=== PATIENT | female | born 1980 | race Caucasian/White ===

== ENCOUNTER 2016-10-19 12:42 | Emergency (ER) | payer SELFPAY | END 2016-10-19 13:10 | disposition left against medical advice (07) | LOC: UCEAST 12:42 | DX: Z53.21 Procedure and treatment not carried out due to patient leaving prior to being seen by health care provider (principal) ==

== ENCOUNTER 2017-06-10 17:08 | Emergency (ER) | payer MEDICAID | END 2017-06-10 17:30 | disposition left against medical advice (07) | LOC: UCEAST 17:08 | DX: K08.89 Other specified disorders of teeth and supporting structures (principal); Z53.21 Procedure and treatment not carried out due to patient leaving prior to being seen by health care provider ==

== ENCOUNTER 2017-06-10 17:43 | Emergency (ER) | payer MEDICAID ==
[2017-06-10 18:22] VITALS: BP 117/71
--- NOTE | 2017-06-10 19:26 | UC ---
Gypsy Mcdonald Edward, scribed for Javier Bella MD on 06/10/17 at 1917 . Dental HPI - HPI Summary HPI Summary: 37 y/o female presents to [facility] c/o pain @ her upper L molar for one week, rated 5/10 in severity at triage. She said she felt the molar was loose and part of it came out. Pt had a filling fall out a year go that caused lots of pain, which resolved spontaneously. PMHx depression and anxiety. - History of Current Complaint Chief Complaint: UCDentalProblem Stated Complaint: TOOTH PAIN Time Seen by Provider: 06/10/17 19:09 Hx Obtained From: Patient Hx Last Menstrual Period: now Onset/Duration: Lasting Weeks - 1 week, Still Present Pain Intensity: 5 Pain Scale Used: 0-10 Numeric - Allergies/Home Medications Allergies/Adverse Reactions: Allergies Allergy/AdvReac Type Severity Reaction Status Date / Time No Known Allergies Allergy Verified 06/10/17 18:23 Home Medications: Home Medications Bupropion XL* [Wellbutrin XL *] 1 cap PO DAILY 06/10/17 [History Confirmed 06/10] PMH/Surg Hx/FS Hx/Imm Hx Previously Healthy: No Psychological History: Anxiety, Depression Other Psychological History: Depression - Surgical History Surgical History: Yes Surgery Procedure, Year, and Place: wisdom teeth - Family History Known Family History: Positive: Other - Alcoholism - Social History Alcohol Use: None Substance Use Type: Prescribed Substance Use Comment - Amount & Last Used: today Smoking Status (MU): Heavy Every Day Tobacco Smoker Type: Cigarettes, eCigarettes Amount Used/How Often: 2 packs per week Length of Time of Smoking/Using Tobacco: 20YRS Have You Smoked in the Last Year: Yes - Immunization History Most Recent Influenza Vaccination: unknown Most Recent Tetanus Shot: UTD Most Recent Pneumonia Vaccination: NONE Review of Systems Constitutional: Negative Skin: Negative Eyes: Negative ENT: Dental Pain Respiratory: Negative Cardiovascular: Negative Gastrointestinal: Negative Genitourinary: Negative Motor: Negative Neurovascular: Negative Musculoskeletal: Negative Neurological: Negative Psychological: Negative All Other Systems Reviewed And Are Negative: Yes Physical Exam Triage Information Reviewed: Yes Appearance: Well-Appearing, No Pain Distress Vital Signs: Initial Vital Signs Temp 97.8 F 06/10/17 18:18 Pulse 74 06/10/17 18:18 Resp 12 06/10/17 18:18 BP 117/71 06/10/17 18:18 Pulse Ox 99 06/10/17 18:18 Vital Signs Reviewed: Yes Eye Exam: Normal ENT Exam: Normal Dental Exam: Other - L upper molar - extensive decay and gingival swelling Neck: Positive: Supple, Nontender Respiratory: Positive: Lungs clear, Normal breath sounds Cardiovascular: Positive: RRR Abdomen Description: Positive: Nontender, Soft Bowel Sounds: Positive: Present Musculoskeletal Exam: Normal Musculoskeletal: Positive: Strength Intact, ROM Intact Neurological Exam: Normal Neurological: Positive: Muscle Tone Normal Psychological Exam: Normal Psychological: Positive: Age Appropriate Behavior Skin Exam: Normal, Other - Warm, dry, color reflects adequate perfusion Dental Complaint Course/Dx - Course Course Of Treatment: PAST MEDICATIONS REVIEWED ON VISIT. RX CLINDA AND PERCOCET - Differential Dx/Diagnosis Provider Diagnoses: DENTAL INFECTION Discharge - Discharge Plan Condition: Stable Disposition: HOME Prescriptions: Clindamycin Cap(NF) [Clindamycin Cap 300 mg Cap(NF)] 300 mg PO Q6H #40 cap oxyCODONE/Acetamin 5/325 MG* [Percocet 5/325 TAB*] 1 tab PO Q4H PRN #30 tab MDD 6 PRN Reason: Pain Patient Education Materials: Toothache (ED) Referrals: Em Vidal MD [Primary Care Provider] - Additional Instructions: FOLLOW UP WITH YOUR DENTIST. GET RECHECKED FOR ANY WORSENING OF YOUR CONDITION OR QUESTIONS OR CONCERNS. The documentation as recorded by the Gypsy baptiste Edward accurately reflects the service I personally performed and the decisions made by me, Javier Bella MD.
== END 2017-06-10 19:31 | disposition home or self-care (01) ==
LOC: UCEAST 17:43
DX: K08.9 Disorder of teeth and supporting structures, unspecified (principal); F32.9 Major depressive disorder, single episode, unspecified; F41.9 Anxiety disorder, unspecified; F17.210 Nicotine dependence, cigarettes, uncomplicated
CPT/HCPCS: 99212; G0463

== ENCOUNTER 2017-09-23 16:02 | Emergency (ER) | payer SELFPAY ==
[2017-09-23 17:31] VITALS: BP 120/76
--- NOTE | 2017-09-23 17:51 | UC ---
Hand/Wrist HPI - HPI Summary HPI Summary: shut right 4th distal finger in car door this morning-pain bruising and swelling no open areas - History Of Current Complaint Chief Complaint: UCUpperExtremity Stated Complaint: RIGHT FINGER INJURY Time Seen by Provider: 09/23/17 17:47 Hx Obtained From: Patient Hx Last Menstrual Period: 09/23/17 ?: No Mechanism Of Injury: crush in car door Onset/Duration: Sudden Onset, Lasting Hours Severity Initially: Moderate Severity Currently: Severe Character Of Pain: Aching, Throbbing Aggravating Factor(s): Movement Alleviating Factor(s): Rest, Elevation Associated Signs And Symptoms: Positive: Swelling, Redness, Bruising Related History: Dominant Hand Right - Allergies/Home Medications Allergies/Adverse Reactions: Allergies Allergy/AdvReac Type Severity Reaction Status Date / Time No Known Allergies Allergy Verified 09/23/17 16:36 Home Medications: Home Medications BuPROPion XL* [Bupropion XL*] 300 mg PO DAILY 09/23/17 [History Confirmed ] FLUoxetine CAP* [Prozac CAP*] 20 mg PO DAILY 09/23/17 [History Confirmed ] Ibuprofen [Ibuprofen 200 MG] 800 mg PO ONCE 09/23/17 [History Confirmed 09/23/17 ] clonazePAM TAB(*) [Klonopin TAB(*)] 0.5 mg PO TID PRN MDD 1.5 09/23/17 [History Confirmed 09/23/17] PMH/Surg Hx/FS Hx/Imm Hx Previously Healthy: No Psychological History: Anxiety - Surgical History Surgical History: Yes Surgery Procedure, Year, and Place: wisdom teeth - Family History Known Family History: Positive: Other - Alcoholism - Social History Occupation: Works From/At Home Lives: Alone Alcohol Use: None Substance Use Type: Prescribed Substance Use Comment - Amount & Last Used: today Smoking Status (MU): Heavy Every Day Tobacco Smoker Type: Cigarettes, eCigarettes Amount Used/How Often: 1/2 PPD Length of Time of Smoking/Using Tobacco: 20YRS Have You Smoked in the Last Year: Yes - Immunization History Most Recent Influenza Vaccination: unknown Most Recent Tetanus Shot: UTD Most Recent Pneumonia Vaccination: NONE Review of Systems Constitutional: Negative Skin: Negative Eyes: Negative ENT: Negative Respiratory: Negative Cardiovascular: Negative Gastrointestinal: Negative Genitourinary: Negative Motor: Negative Neurovascular: Negative Musculoskeletal: Negative, Arthralgia - distal right 4th finger, Edema Neurological: Negative Psychological: Negative Is Patient Immunocompromised?: No All Other Systems Reviewed And Are Negative: Yes Physical Exam Triage Information Reviewed: Yes Appearance: Well-Appearing, No Pain Distress, Well-Nourished Vital Signs: Initial Vital Signs Temp 98.8 F 09/23/17 16:40 Pulse 83 09/23/17 16:40 Resp 20 09/23/17 16:40 Pulse Ox 100 09/23/17 16:40 Vital Signs Reviewed: Yes Eye Exam: Normal Eyes: Positive: Conjunctiva Clear ENT Exam: Normal ENT: Positive: Normal ENT inspection, Hearing grossly normal. Negative: Nasal congestion, Tonsillar exudate, Trismus, Muffled voice, Hoarse voice Dental Exam: Normal Neck exam: Normal Neck: Positive: Supple, Nontender Respiratory Exam: Normal Respiratory: Positive: No respiratory distress, No accessory muscle use Cardiovascular Exam: Normal Cardiovascular: Positive: RRR, Pulses Normal, Brisk Capillary Refill Musculoskeletal Exam: Other Musculoskeletal: Positive: Strength Limited @ - due to pain, ROM Limited @ - distal right 4th finger, Edema @ - distal right 4th finger Neurological Exam: Normal Psychological Exam: Normal Skin Exam: Normal Diagnostics - Radiology No standard instances Xray Interpretation: No Acute Changes Radiology Interpretation Completed By: ED Physician, Radiologist Hand/Wrist Course/Dx - Course Course Of Treatment: rice, splint for protection, ibuprofen, vicoden, follow with pcp - Differential Dx/Diagnosis Provider Diagnoses: Crush injury right 4th finger Discharge - Discharge Plan Condition: Stable Disposition: HOME Prescriptions: Hydrocodone-Acetaminophen [Hydrocodone/Acetaminophen 5-325 mg] 1 tab PO QID PRN #6 tab MDD 4 PRN Reason: pain Hydrocodone-Acetaminophen [Hydrocodone/Acetaminophen 5-325 mg] 1 tab PO QID PRN #6 tab MDD 4 PRN Reason: Pain Patient Education Materials: Ibuprofen (By mouth), Contusion in Adults (ED), RICE Therapy (ED), Crush Injury (ED) Referrals: [facility] [[facility]] - If Needed
[2017-09-23] MEDS ORDERED: HYDROcodone/ACETAMIN 5-325 MG* 1 TAB PO ONE (17:54)
--- NOTE | 2017-09-23 18:50 | RAD ---
Indication: Right ring finger injury. 3 views of the right fourth finger demonstrates no fracture. No other bone or joint abnormality is noted. IMPRESSION: No fracture of the right fourth digit is noted.
== END 2017-09-23 19:05 | disposition home or self-care (01) ==
LOC: UCEAST 16:02
DX: S67.194A Crushing injury of right ring finger, initial encounter (principal); F17.210 Nicotine dependence, cigarettes, uncomplicated; W23.0XXA Caught, crushed, jammed, or pinched between moving objects, initial encounter; Y92.9 Unspecified place or not applicable
CPT/HCPCS: 73140; 99213; G0463

== ENCOUNTER 2017-10-06 19:21 | Inpatient (IN) | payer SELFPAY ==
[2017-10-06] MEDS ORDERED: LORazepam TAB(*) 1 MG PO ONE (19:49)
[2017-10-06 20:12] LABS: Urine Appearance Clear; Urine Blood Negative (Negative); Urine Color Straw; Urine Ketones Negative (Negative); Urine Protein Negative (Negative); Urine Specific Gravity 1.005 (1.010-1.030); Urine Urobilinogen Negative (Negative)
[2017-10-06 20:29] LABS: ABS Basophils 0.1 10^3/ul (0-0.2); ABS Eosinophils 0.2 10^3/ul (0-0.6); ABS Lymphocytes 2.5 10^3/ul (1.0-4.8); ABS Monocytes 0.6 10^3/ul (0-0.8); ABS Neutrophils 5.4 10^3/ul (1.5-7.7); ABS Nucleated RBC 0 10^3/ul; Eosinophil % 1.7 % (0-6); Hematocrit 36 % (35-47); Lymphocyte % 28.8 % (25-47); Mean Corpuscular HGB Conc 34 g/dl (31-36); Mean Corpuscular Hemoglobin 30 pg (27-31); Mean Corpuscular Volume 88 fL (80-97); Mean Platelet Volume 8 um3 (7.4-10.4); Nucleated Red Blood Cells % 0; Platelet Count 431 10^3/ul (150-450); Red Blood Count 4.05 10^6/ul (4.0-5.4); Red Cell Distribution Width 16 % (10.5-15); White Blood Count 8.8 10^3/ul (3.5-10.8)
[2017-10-06 20:40] LABS: EGFR Non-African American 82.2 (>60)
[2017-10-06] MEDS ORDERED: Nicotine PATCH 21 MG/24 HR* PATCH TRANSDERM ONE (23:07)
--- NOTE | 2017-10-06 23:33 | ED ---
Wes Mcdonald Tiffany, scribed for Nomi Trejo on 10/06/17 at 1940 . Psychiatric Complaint - HPI Summary HPI Summary: This patient is a 37 year old F presenting to [facility] with a chief complaint of depression that has worsened over the past month. Symptoms aggravated by nothing. Symptoms alleviated by nothing. Patient reports suicidal ideation, opioid abuse, and anxiety. The patient says she recently began using opioids and now finds it difficult to stop. The patient requests medication for her anxiety before bloodwork obtained. - History Of Current Complaint Chief Complaint: EDMentalHealth Time Seen by Provider: 10/06/17 19:31 Hx Obtained From: Patient Hx Last Menstrual Period: 09/23/17 Onset/Duration: Gradual Onset, Lasting Weeks - 4 weeks, Still Present Timing: Constant Character: Depressed, Anxious Aggravating Factor(s): Nothing Alleviating Factor(s): Nothing Has Suicidal: Reports: Thoughts - Allergies/Home Medications Allergies/Adverse Reactions: Allergies Allergy/AdvReac Type Severity Reaction Status Date / Time No Known Allergies Allergy Verified 09/23/17 16:36 PMH/Surg Hx/FS Hx/Imm Hx Previously Healthy: No Endocrine/Hematology History: Denies: Hx Diabetes Cardiovascular History: Denies: Hx Hypertension Respiratory History: Denies: Hx Asthma, Hx Chronic Obstructive Pulmonary Disease (COPD) GI History: Denies: Hx Ulcer Musculoskeletal History: Reports: Other Musculoskeletal History - CARPAL TUNNEL SYNDROME R WRIST Psychiatric History: Reports: Hx Anxiety, Hx Eating Disorder - BULEMIA, Hx Depression Denies: Hx of Violent Episodes Against Others - Surgical History Surgery Procedure, Year, and Place: wisdom teeth Infectious Disease History: No Infectious Disease History: Denies: Hx Clostridium Difficile, Hx Hepatitis, Hx Human Immunodeficiency Virus (HIV), Hx of Known/Suspected MRSA, Hx Shingles, Hx Tuberculosis, Hx Known/ Suspected VRE, Hx Known/Suspected VRSA, History Other Infectious Disease, Traveled Outside the [place] in Last 30 Days - Family History Known Family History: Positive: Other - Alcoholism - Social History Alcohol Use: None Hx Substance Use: Yes Substance Use Type: Reports: Prescribed Substance Use Comment - Amount & Last Used: today Hx Tobacco Use: Yes Smoking Status (MU): Heavy Every Day Tobacco Smoker Type: Cigarettes, eCigarettes Amount Used/How Often: 1/2 PPD Length of Time of Smoking/Using Tobacco: 20YRS Have You Smoked in the Last Year: Yes Review of Systems Negative: Fever Positive: Anxious, Depressed, Other - Suicidal ideation, opiod abuse All Other Systems Reviewed And Are Negative: Yes Physical Exam - Summary Physical Exam Summary: Appearance: Well appearing, no pain distress Skin: warm, dry, reflects adequate perfusion Head/face: normal Eyes: EOMI, TUAN ENT: normal Neck: supple, non-tender Respiratory: CTA, breath sounds present Cardiovascular: RRR, pulses symmetrical Abdomen: non-tender, soft Bowel: present Musculoskeletal: normal, strength/ROM intact Neuro: normal, sensory motor intact, A&Ox3 Psych: depressed affect Triage Information Reviewed: Yes Vital Signs On Initial Exam: Initial Vitals Temp Pulse Resp BP Pulse Ox 97.0 F 90 20 161/90 100 10/06/17 19:22 10/06/17 19:22 10/06/17 19:22 10/06/17 19:22 10/06/17 19:22 Vital Signs Reviewed: Yes Diagnostics - Vital Signs Vital Signs Temp Pulse Resp BP Pulse Ox 10/06/17 19:22 97.0 F 90 20 161/90 100 - Laboratory Lab Results: Lab Results 10/06/17 10/06/17 10/06/17 Range/Units 19:42 19:42 20:16 WBC (3.5-10.8) 10^3/ul RBC (4.0-5.4) 10^6/ul Hgb (12.0-16.0) g/dl Hct (35-47) % MCV (80-97) fL MCH (27-31) pg MCHC (31-36) g/dl RDW (10.5-15) % Plt Count (150-450) 10^3/ul MPV (7.4-10.4) um3 Neut % (Auto) (38-83) % Lymph % (Auto) (25-47) % [place] % (Auto) (1-9) % Eos % (Auto) (0-6) % Baso % (Auto) (0-2) % Absolute Neuts (auto) (1.5-7.7) 10^3/ul Absolute Lymphs (auto) (1.0-4.8) 10^3/ul Absolute Monos (auto) (0-0.8) 10^3/ul Absolute Eos (auto) (0-0.6) 10^3/ul Absolute Basos (auto) (0-0.2) 10^3/ul Absolute Nucleated RBC 10^3/ul Nucleated RBC % Sodium 137 (133-145) mmol/L Potassium 3.5 (3.5-5.0) mmol/L Chloride 106 (101-111) mmol/L Carbon Dioxide 26 (22-32) mmol/L Anion Gap 5 (2-11) mmol/L BUN 20 (6-24) mg/dL Creatinine 0.78 (0.51-0.95) mg/dL Est GFR ( Amer) 105.7 (>60) Est GFR (Non-Af Amer) 82.2 (>60) BUN/Creatinine Ratio 25.6 H (8-20) Glucose 101 H (70-100) mg/dL Calcium 9.9 (8.6-10.3) mg/dL Total Bilirubin 0.20 (0.2-1.0) mg/dL AST 13 (13-39) U/L ALT 12 (7-52) U/L Alkaline Phosphatase 48 (34-104) U/L Total Protein 7.2 (6.4-8.9) g/dL Albumin 4.1 (3.2-5.2) g/dL Globulin 3.1 (2-4) g/dL Albumin/Globulin Ratio 1.3 (1-3) TSH 1.39 (0.34-5.60) mcIU/mL Beta HCG, Quant < 0.60 mIU/mL Urine Color Straw Urine Appearance Clear Urine pH 6.0 (5-9) Ur Specific Malcolm 1.005 L (1.010-1.030) Urine Protein Negative (Negative) Urine Ketones Negative (Negative) Urine Blood Negative (Negative) Urine Nitrate Negative (Negative) Urine Bilirubin Negative (Negative) Urine Urobilinogen Negative (Negative) Ur Leukocyte Esterase Negative (Negative) Urine Glucose Negative (Negative) Salicylates 3.20 (<30) mg/dL Urine Opiates Screen Presumptive positive H (None Detect) Acetaminophen < 15 mcg/mL Ur Barbiturates Screen None detected (None Detect) Ur Phencyclidine Scrn None detected (None Detect) Ur Amphetamines Screen None detected (None Detect) U Benzodiazepines Scrn None detected (None Detect) Urine Cocaine Screen Presumptive positive H (None Detect) U Cannabinoids Screen None detected (None Detect) Serum Alcohol < 10 (<10) mg/dL 10/06/17 Range/Units 20:16 WBC 8.8 (3.5-10.8) 10^3/ul RBC 4.05 (4.0-5.4) 10^6/ul Hgb 12.0 (12.0-16.0) g/dl Hct 36 (35-47) % MCV 88 (80-97) fL MCH 30 (27-31) pg MCHC 34 (31-36) g/dl RDW 16 H (10.5-15) % Plt Count 431 (150-450) 10^3/ul MPV 8 (7.4-10.4) um3 Neut % (Auto) 62.0 (38-83) % Lymph % (Auto) 28.8 (25-47) % [place] % (Auto) 6.3 (1-9) % Eos % (Auto) 1.7 (0-6) % Baso % (Auto) 1.2 (0-2) % Absolute Neuts (auto) 5.4 (1.5-7.7) 10^3/ul Absolute Lymphs (auto) 2.5 (1.0-4.8) 10^3/ul Absolute Monos (auto) 0.6 (0-0.8) 10^3/ul Absolute Eos (auto) 0.2 (0-0.6) 10^3/ul Absolute Basos (auto) 0.1 (0-0.2) 10^3/ul Absolute Nucleated RBC 0 10^3/ul Nucleated RBC % 0 Sodium (133-145) mmol/L Potassium (3.5-5.0) mmol/L Chloride (101-111) mmol/L Carbon Dioxide (22-32) mmol/L Anion Gap (2-11) mmol/L BUN (6-24) mg/dL Creatinine (0.51-0.95) mg/dL Est GFR ( Amer) (>60) Est GFR (Non-Af Amer) (>60) BUN/Creatinine Ratio (8-20) Glucose (70-100) mg/dL Calcium (8.6-10.3) mg/dL Total Bilirubin (0.2-1.0) mg/dL AST (13-39) U/L ALT (7-52) U/L Alkaline Phosphatase (34-104) U/L Total Protein (6.4-8.9) g/dL Albumin (3.2-5.2) g/dL Globulin (2-4) g/dL Albumin/Globulin Ratio (1-3) TSH (0.34-5.60) mcIU/mL Beta HCG, Quant mIU/mL Urine Color Urine Appearance Urine pH (5-9) Ur Specific Malcolm (1.010-1.030) Urine Protein (Negative) Urine Ketones (Negative) Urine Blood (Negative) Urine Nitrate (Negative) Urine Bilirubin (Negative) Urine Urobilinogen (Negative) Ur Leukocyte Esterase (Negative) Urine Glucose (Negative) Salicylates (<30) mg/dL Urine Opiates Screen (None Detect) Acetaminophen mcg/mL Ur Barbiturates Screen (None Detect) Ur Phencyclidine Scrn (None Detect) Ur Amphetamines Screen (None Detect) U Benzodiazepines Scrn (None Detect) Urine Cocaine Screen (None Detect) U Cannabinoids Screen (None Detect) Serum Alcohol (<10) mg/dL Result Diagrams: 10/06/17 20:16 10/06/17 20:16 Lab Statement: Any lab studies that have been ordered have been reviewed, and results considered in the medical decision making process. Course/Dx - Course Course Of Treatment: This patient is a 37 year old F presenting to [facility] with a chief complaint of depression that has worsened over the past month. Bloodwork/ UA obtained. In the ED course, the patient was given Ativan. The patient recieved a mental health evaluation. Patient will be admitted. The patient is agreeable with this plan. - Differential Dx/Clinical Impression Differential Diagnosis/HQI/PQRI: Positive: Anxiety, Depression, Suicidal Ideation Provider Diagnosis: Depression, Cocaine-induced mood disorder Discharge - Discharge Plan Condition: Fair Disposition: ADMITTED TO [facility] Referrals: No Primary Care Phys,NOPCP [Medical Doctor] - The documentation as recorded by the Wes baptiste Tiffany accurately reflects the service I personally performed and the decisions made by , Nomi Trejo.
[2017-10-07] MEDS ORDERED: Mouth Piece, Nicotine* 1 EACH CARTRIDGE INH SCH (00:16)
[2017-10-07] MEDS ORDERED: Al Hydrox/Mg Hydrox/Simet LIQ* 30 ML UDC PO PRN (00:16)
[2017-10-07] MEDS: Acetaminophen TAB* 325 MG PO PRN ×4 (00:34→21:25)
[2017-10-07] MEDS: Gabapentin CAP(*) 100 MG PO SCH ×3 (00:34→14:30)
[2017-10-07] MEDS: hydrOXYzine HCL TAB* 50 MG PO PRN ×3 (00:34→14:32)
[2017-10-07] MEDS: Nicotine Inhaler* 10 MG AMP INH PRN ×3 (00:35→20:31)
[2017-10-07] MEDS: BuPROPion XL* 300 MG TAB.XL PO SCH (08:19)
[2017-10-07] MEDS: Vitamin THERAPEUTIC TAB PO SCH (08:20)
[2017-10-07] MEDS: Nicotine GUM* 2 MG PO PRN ×3 (08:36→20:31)
[2017-10-07] MEDS ORDERED: FLUoxetine CAP* 20 MG PO SCH (09:00)
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
[2017-10-07] MEDS ORDERED: FLUoxetine CAP* 20 MG PO ONE (14:37)
[2017-10-07] MEDS ORDERED: ARIPiprazole TAB* 5 MG PO ONE (15:00)
[2017-10-07] MEDS: Nicotine PATCH 21 MG/24 HR* PATCH TRANSDERM SCH (15:14)
[2017-10-07] MEDS: cloNIDine TAB* 0.1 MG PO SCH ×2 (16:55→20:31)
[2017-10-07] MEDS: clonazePAM TAB(*) 1 MG PO SCH (16:55)
[2017-10-07] MEDS ORDERED: Nicotine Patch Removal NOTE FOLLOW UP SCH (21:00)
[2017-10-07] MEDS: chlorproMAZINE TAB* 50 MG PO PRN (21:25)
[2017-10-07] MEDS: Nicotine Patch Removal NOTE PATCH OFF SCH (22:07)
[2017-10-08] MEDS: Nicotine GUM* 2 MG PO PRN ×3 (07:26→20:24)
[2017-10-08] MEDS: Acetaminophen TAB* 325 MG PO PRN ×2 (07:27→16:20)
[2017-10-08] MEDS: Nicotine PATCH 21 MG/24 HR* PATCH TRANSDERM SCH (07:28)
[2017-10-08] MEDS: cloNIDine TAB* 0.1 MG PO SCH ×4 (08:05→20:29)
[2017-10-08] MEDS ORDERED: Influenza VAC *QUAD* 2017-18* 0.5 ML SYRINGE IM ONE (09:00)
[2017-10-08] MEDS ORDERED: ARIPiprazole TAB* 5 MG PO ONE ×2 (09:00→14:45)
[2017-10-08] MEDS: Vitamin THERAPEUTIC TAB PO SCH (09:25)
[2017-10-08] MEDS: BuPROPion XL* 300 MG TAB.XL PO SCH (09:25)
[2017-10-08] MEDS: ARIPiprazole TAB* 5 MG PO SCH (09:25)
[2017-10-08] MEDS: FLUoxetine CAP* 20 MG PO SCH (09:26)
[2017-10-08] MEDS: clonazePAM TAB(*) 1 MG PO SCH ×2 (09:27→15:54)
[2017-10-08] MEDS: lamoTRIgine TAB(*) 25 MG PO SCH (09:27)
[2017-10-08] MEDS: hydrOXYzine HCL TAB* 50 MG PO PRN (13:39)
[2017-10-08] MEDS: Nicotine Inhaler* 10 MG AMP INH PRN ×2 (16:20→21:21)
--- NOTE | 2017-10-08 17:22 | PN ---
Subjective - Subjective Subjective: "I have been sleeping a lot." She endorses withdrawal symptoms of chills, nausea , anorexia, constipation but no vomiting. She avidly denies SI/HI, urges for sib or A/VH. She has not interest in rehab, plans to restart seeing her current outpatient providers after discharge and maybe attending AA. Per staff, she is adherent to unit's routines. Objective - Appearance Appearance: Healthy Appearing Dysmorphic Features: No Hygiene: Normal Grooming: Well Kept - Behavior Psychomotor Activities: Normal Exhibits Abnormal Movement: No - Attitude and Relatedness Attitude and Relatedness: Cooperative Eye Contact: Good - Speech Quality: Unpressured Latencies: Normal Quantity: Appropriate - Mood Patient's Decription of Mood: "Okay" - Affect Observed Affect: Constricted Affect Consistent with: Dysphoria - Thought Process Patient's Thought Process: Coherent, Goal Directed Thought Content: No Passive Wish, No Suicidal Planning, No Homicidal Ideation, No Paranoid Ideation - Sensorium Experiencing Hallucinations: No, Sensorium is Clear - Level of Consciousness Level of Consciousness: Alert Orientation: Yes Intact - Impulse Control Impulse Control: Intact - Insight and Judgement Insight and Judgement: Poor - Group Participation Particating in Group Activities: No - Medication Management Medication Management Adherence: Yes Assessment - Assessment Merits Inpatient Hospitalization: [facility], For Discharge Planning Inpatient DSM-IV Dx: MDD, recurrent, moderate; Polysubstance use disorder; Borderline PD. Clinical Impression: Progressing well through detoxification with tolerable withdrawal symptoms, denying suicidality, tolerating trials of Fluoxetine, Lamotrigine, Aripiprazole , Clonazepam, Buproprion and Catapress. She needs continued admission to complete detoxification and for discharge planning. Plan - Plan Treatment Plan: Name: MEIR SAVAGE Birthdate: 1980 [id number] Continued Medication Management: Continue Outpt Medication Medications: Current Medications Al Hydrox/Mg Hydrox/Simethicone (Maalox Plus*) 30 ml PO Q4H PRN PRN Reason: INDIGESTION Aripiprazole (Abilify Tab*) 10 mg PO DAILY [facility] Stop: 10/10/17 09:01 Last Admin: 10/08/17 09:25 Dose: 10 mg Aripiprazole (Abilify Tab*) 15 mg PO DAILY [facility] Bupropion HCl (Bupropion Xl*) 300 mg PO DAILY ELO Last Admin: 10/08/17 09:25 Dose: 300 mg Chlorpromazine HCl (Thorazine Tab*) 50 mg PO BEDTIME PRN PRN Reason: insomnia Last Admin: 10/07/17 21:25 Dose: 50 mg Clonazepam (Klonopin Tab(*)) 1 mg PO BID@09,16 [facility] Last Admin: 10/08/17 15:54 Dose: 1 mg Clonidine HCl (Catapres Tab*) 0.1 mg PO QID@07,12,16, [facility] Last Admin: 10/08/17 15:54 Dose: 0.1 mg Docusate Sodium (Colace Cap*) 100 mg PO BID PRN PRN Reason: CONSTIPATION Fluoxetine HCl (Prozac Cap*) 40 mg PO DAILY [facility] Last Admin: 10/08/17 09:26 Dose: 40 mg Hydroxyzine HCl (Atarax Tab*) 50 mg PO Q6H PRN PRN Reason: ANXIETY Last Admin: 10/08/17 13:39 Dose: 50 mg Ibuprofen (Motrin Tab*) 600 mg PO Q6H PRN PRN Reason: PAIN Lamotrigine (Lamictal Tab(*)) 25 mg PO DAILY@09 [facility] Last Admin: 10/08/17 09:27 Dose: 25 mg Multivitamins (Theragran Tab*) 1 tab PO DAILY [facility] Last Admin: 10/08/17 09:25 Dose: 1 tab Nicotine (Nicotine Inhaler*) 10 mg INH Q2H PRN PRN Reason: CRAVING Last Admin: 10/08/17 16:20 Dose: 10 mg Nicotine (Nicotine Patch 21 Mg/24 Hr*) 1 patch TRANSDERM DAILY@0800 [facility] Last Admin: 10/08/17 07:28 Dose: 1 patch Nicotine Polacrilex (Nicotine Gum*) 2 mg PO Q2H PRN PRN Reason: CRAVING Last Admin: 10/08/17 12:27 Dose: 2 mg Pharmacy Profile Note (Nicotine Patch Removal Note*) 1 note PATCH OFF 2100 [facility] Last Admin: 10/07/17 22:07 Dose: 1 note - Discharge Plan Discharge Plan: Outpatient Follow Up Outpatient Program: Private Clinician(s) - Jana Vigil, DARRELL-R; BEATRIZ Keith.
[2017-10-08] MEDS: Docusate CAP* 100 MG PO PRN (20:28)
[2017-10-08] MEDS: Nicotine Patch Removal NOTE PATCH OFF SCH (21:21)
[2017-10-08] MEDS: chlorproMAZINE TAB* 50 MG PO PRN (21:21)
[2017-10-09] MEDS: hydrOXYzine HCL TAB* 50 MG PO PRN ×3 (02:50→23:21)
[2017-10-09] MEDS: Vitamin THERAPEUTIC TAB PO SCH (07:27)
[2017-10-09] MEDS: BuPROPion XL* 300 MG TAB.XL PO SCH (07:27)
[2017-10-09] MEDS: ARIPiprazole TAB* 5 MG PO SCH (07:27)
[2017-10-09] MEDS: FLUoxetine CAP* 20 MG PO SCH (07:27)
[2017-10-09] MEDS: lamoTRIgine TAB(*) 25 MG PO SCH (07:28)
[2017-10-09] MEDS: Nicotine PATCH 21 MG/24 HR* PATCH TRANSDERM SCH (07:28)
[2017-10-09] MEDS: cloNIDine TAB* 0.1 MG PO SCH ×4 (07:32→21:00)
[2017-10-09] MEDS: clonazePAM TAB(*) 1 MG PO SCH ×2 (07:32→16:00)
[2017-10-09] MEDS: Ibuprofen TAB* 600 MG PO PRN ×2 (07:32→15:59)
[2017-10-09] MEDS: Docusate CAP* 100 MG PO PRN ×2 (07:33→20:21)
[2017-10-09] MEDS: Nicotine GUM* 2 MG PO PRN ×4 (07:34→20:21)
[2017-10-09] MEDS: Nicotine Inhaler* 10 MG AMP INH PRN ×2 (07:34→20:21)
[2017-10-09] MEDS ORDERED: Influenza VAC *QUAD* 2017-18* 0.5 ML SYRINGE IM ONE (08:00)
[2017-10-09] MEDS: Nicotine Patch Removal NOTE PATCH OFF SCH (21:59)
[2017-10-09] MEDS: chlorproMAZINE TAB* 50 MG PO PRN (23:21)
[2017-10-10] MEDS: Nicotine PATCH 21 MG/24 HR* PATCH TRANSDERM SCH (06:13)
[2017-10-10] MEDS: Ibuprofen TAB* 600 MG PO PRN ×3 (06:15→22:09)
[2017-10-10] MEDS: Nicotine Inhaler* 10 MG AMP INH PRN ×2 (06:18→18:53)
[2017-10-10] MEDS: Nicotine GUM* 2 MG PO PRN ×4 (06:18→22:09)
[2017-10-10] MEDS: cloNIDine TAB* 0.1 MG PO SCH ×4 (08:16→20:12)
[2017-10-10] MEDS: ARIPiprazole TAB* 5 MG PO SCH (08:17)
[2017-10-10] MEDS: Vitamin THERAPEUTIC TAB PO SCH (08:18)
[2017-10-10] MEDS: BuPROPion XL* 300 MG TAB.XL PO SCH (08:18)
[2017-10-10] MEDS: FLUoxetine CAP* 20 MG PO SCH (08:18)
[2017-10-10] MEDS: lamoTRIgine TAB(*) 25 MG PO SCH (08:21)
[2017-10-10] MEDS: clonazePAM TAB(*) 1 MG PO SCH ×2 (10:43→16:02)
[2017-10-10] MEDS: Docusate CAP* 100 MG PO PRN ×2 (12:42→18:57)
[2017-10-10] MEDS: hydrOXYzine HCL TAB* 50 MG PO PRN ×2 (13:55→23:14)
--- NOTE | 2017-10-10 17:57 | PN ---
Subjective - Subjective Subjective: Meir endorses improving mood, milder withdrawal symptoms. She c/o continued difficulty with constipation despite prescribed Colace. Per staff, she remains adherent to unit's routines. Objective - Appearance Appearance: Healthy Appearing Dysmorphic Features: No Hygiene: Normal Grooming: Well Kept - Behavior Psychomotor Activities: Normal Exhibits Abnormal Movement: No - Attitude and Relatedness Attitude and Relatedness: Cooperative Eye Contact: Fair - Speech Quality: Unpressured Latencies: Normal Quantity: Appropriate - Mood Patient's Decription of Mood: "Okay" - Affect Observed Affect: Tearful Affect Consistent with: Euthymia - Thought Process Patient's Thought Process: Coherent, Goal Directed Thought Content: No Passive Wish, No Suicidal Planning, No Homicidal Ideation, No Paranoid Ideation - Sensorium Experiencing Hallucinations: No, Sensorium is Clear - Level of Consciousness Level of Consciousness: Alert Orientation: Yes Intact - Impulse Control Impulse Control: Intact - Insight and Judgement Insight and Judgement: Fair - Group Participation Particating in Group Activities: Yes - Medication Management Medication Management Adherence: Yes Assessment - Assessment Merits Inpatient Hospitalization: [facility], For Discharge Planning Inpatient DSM-IV Dx: MDD, recurrent, moderate; Polysubstance use disorder; Borderline PD. Clinical Impression: Progressing well through detoxification with tolerable withdrawal symptoms, denying suicidality, tolerating trials of Fluoxetine, Lamotrigine, Aripiprazole , Clonazepam, Buproprion and Catapress. She needs continued admission to complete detoxification and for discharge planning. Plan - Plan Treatment Plan: Name: MEIR SAVAGE Birthdate: 1980 [id number] Medications: Current Medications Al Hydrox/Mg Hydrox/Simethicone (Maalox Plus*) 30 ml PO Q4H PRN PRN Reason: INDIGESTION Aripiprazole (Abilify Tab*) 15 mg PO DAILY [facility]LO Bupropion HCl (Bupropion Xl*) 300 mg PO DAILY [facility] Last Admin: 10/10/17 08:18 Dose: 300 mg Chlorpromazine HCl (Thorazine Tab*) 50 mg PO BEDTIME PRN PRN Reason: insomnia Last Admin: 10/09/17 23:21 Dose: 50 mg Clonazepam (Klonopin Tab(*)) 1 mg PO BID@,16 [facility] Last Admin: 10/10/17 16:02 Dose: 1 mg Clonidine HCl (Catapres Tab*) 0.1 mg PO QID@07,12,16,21 [facility] Last Admin: 10/10/17 16:04 Dose: Not Given Docusate Sodium (Colace Cap*) 100 mg PO BID PRN PRN Reason: CONSTIPATION Last Admin: 10/10/17 12:42 Dose: 100 mg Fluoxetine HCl (Prozac Cap*) 40 mg PO DAILY [facility] Last Admin: 10/10/17 08:18 Dose: 40 mg Hydroxyzine HCl (Atarax Tab*) 50 mg PO Q6H PRN PRN Reason: ANXIETY Last Admin: 10/10/17 13:55 Dose: 50 mg Ibuprofen (Motrin Tab*) 600 mg PO Q6H PRN PRN Reason: PAIN Last Admin: 10/10/17 13:55 Dose: 600 mg Lamotrigine (Lamictal Tab(*)) 25 mg PO DAILY@09 [facility] Last Admin: 10/10/17 08:21 Dose: 25 mg Multivitamins (Theragran Tab*) 1 tab PO DAILY [facility] Last Admin: 10/10/17 08:18 Dose: 1 tab Nicotine (Nicotine Inhaler*) 10 mg INH Q2H PRN PRN Reason: CRAVING Last Admin: 10/10/17 06:18 Dose: 10 mg Nicotine (Nicotine Patch 21 Mg/24 Hr*) 1 patch TRANSDERM DAILY@0800 [facility] Last Admin: 10/10/17 06:13 Dose: 1 patch Nicotine Polacrilex (Nicotine Gum*) 2 mg PO Q2H PRN PRN Reason: CRAVING Last Admin: 10/10/17 11:55 Dose: 2 mg Pharmacy Profile Note (Nicotine Patch Removal Note*) 1 note PATCH OFF 2100 [facility] Last Admin: 10/09/17 21:59 Dose: 1 note - Discharge Plan Discharge Plan: Outpatient Follow Up Outpatient Program: Private Clinician(s)
[2017-10-10] MEDS: Nicotine Patch Removal NOTE PATCH OFF SCH (21:44)
[2017-10-10] MEDS: chlorproMAZINE TAB* 50 MG PO PRN (22:09)
[2017-10-11] MEDS: Nicotine GUM* 2 MG PO PRN ×5 (07:16→20:06)
[2017-10-11] MEDS: Nicotine Inhaler* 10 MG AMP INH PRN ×3 (07:16→20:07)
[2017-10-11] MEDS: clonazePAM TAB(*) 1 MG PO SCH ×2 (07:20→15:50)
[2017-10-11] MEDS: Nicotine PATCH 21 MG/24 HR* PATCH TRANSDERM SCH (07:20)
[2017-10-11] MEDS: FLUoxetine CAP* 20 MG PO SCH (08:30)
[2017-10-11] MEDS: ARIPiprazole TAB* 15 MG PO SCH (08:30)
[2017-10-11] MEDS: Vitamin THERAPEUTIC TAB PO SCH (08:30)
[2017-10-11] MEDS: BuPROPion XL* 300 MG TAB.XL PO SCH (08:31)
[2017-10-11] MEDS: cloNIDine TAB* 0.1 MG PO SCH ×3 (08:33→12:13)
[2017-10-11] MEDS: lamoTRIgine TAB(*) 25 MG PO SCH (08:33)
[2017-10-11] MEDS: Ibuprofen TAB* 600 MG PO PRN ×2 (08:34→17:30)
[2017-10-11] MEDS: hydrOXYzine HCL TAB* 50 MG PO PRN (10:54)
--- NOTE | 2017-10-11 12:02 | PN ---
[facility]: Group Therapy Note - Service Type Service Type: [id number] Group Psychotherapy - Cognitive Behavioral Group Therapy ( CBT):Patient was attentive and participatory in CBT programming this morning, and remained in good behavioral control. Patient expressed positive insights regarding relevant treatment interventions and goals.
--- NOTE | 2017-10-11 12:05 | PN ---
Subjective - Subjective Date of Service: 10/11/17 Subjective: Psychiatric Attending Progress Note: Reviewed nursing and physician notes from extended weekend Patient slept better with 50 mg thorazine for one night but subsequently had trouble falling asleep. she did not notify nursing or share this with physician front office supervisor. Interviewed patient X 1 hour today. used motivational interviewing to boost ego strength, enhance self esteem, and fostered sense of competence by building on patient's strengths including past accomplishments, hobbies, skills, sucesses while normalizing areas of weakness and biologic vulnerabilities (ie. depression, anxiety). Patient's mother visited over the weekend patient reported it went well. mother confirmed that patient had difficulty focusing throughout her life beginning in childhood Objective - Appearance Appearance: Well Developed/Nourished Dysmorphic Features: No Hygiene: Normal Grooming: Well Kept - Behavior Psychomotor Activities: Normal Exhibits Abnormal Movement: No - Attitude and Relatedness Attitude and Relatedness: Cooperative Eye Contact: Good - Speech Quality: Unpressured Latencies: Normal Quantity: Appropriate - Mood Patient's Decription of Mood: "Anxious" - Affect Observed Affect: Labile - tearful,anxious, - Thought Process Patient's Thought Process: Coherent, Over Inclusive Thought Content: No Passive Wish, No Suicidal Planning, No Homicidal Ideation, No Paranoid Ideation - Sensorium Experiencing Hallucinations: No, Sensorium is Clear Type of Hallucinations: Visual: No, Auditory: No, Command: No - Level of Consciousness Level of Consciousness: Alert Orientation: Yes Intact, Yes Orientated to Time, Yes Orientated to Place, Yes Orientated to Person - Impulse Control Impulse Control: Tenuous - Insight and Judgement Insight and Judgement: Fair - Group Participation Particating in Group Activities: Yes - Medication Management Medication Management Adherence: Yes - patient is preoccupied with obsessional thoughts of self doubt,guilt for past errors, feelings of undeservedness and worthlessness Assessment - Assessment Merits Inpatient Hospitalization: For Immediate Safety, For Stabilization, For Ongoing Evaluation, Pending Safe DC Plan Inpatient DSM-IV Dx: MDD, recurrent, moderate; Polysubstance use disorder; Borderline PD. rule out Obsessive Compulsive Disorder. Rule out Bipolar Disorder unspecified. Rule out Attention Deficit Hyperactivity Disorder combined versus Inattentive Clinical Impression: 37 year old single woman with history of mental illness since teens when she had onset of depression. Patient carries diagnosis of MDD recurrent but it is my belief that her history , mental status, family psychiatric history, and onset/time course of symptoms are more consistent with a bipolar spectrum disorder. The facts which support this diagnosis include: maternal history of highs and lows, poor response to multiple trials of antidepressants, poor occupational and interpersonal functioning starting in mid 20's, the presence of both depressive and mixed mood episodes. patient's self sabotage, unstable interpersonal relationships, poor impulse control, inability to tolerate being alone, limited ability to self soothe, and frantic efforts to avoid abandonment are consistent with borderline character pathology. To be sure patient has long standing comorbid eating disorder, panic disorder, and likely post traumatic stress disorder although I did not ask enough history to ascertain whether she actually meets criteria for PTSD at this time. Withdrawal syndrome is resolving but still having mild symptoms including nausea, hot flashes, agitation and insomnia. Patient's long standing preoccupation with themes of doubt, guilt needing to be perfect, worthlessness although consistent with mood disorder also can be construed as obsessional thinking. Diagnoses: Bipolar disorder unspecified currently depressed severe versus MDD recurrent severe Panic Disorder Borderline Personality Disorder polysubstance abuse cocaine use disorder Opioid dependence alcohol abuse history Cannabis abuse history opioid withdrawal syndrome rule out PTSD ADHD rule out OCD Plan - Plan Treatment Plan: Plan: individual, milieu, group therapy Prozac to 40 mg qam wellbutrin XL 300 mg qam klonopin 1 mg BID Lamictal 25 mg QAM for mood stabilization [id number] mg qam daily for acute and maintenance treatment of bipolar disorder Clonidine 0.1 mg QID PRN for opiate w/d symptoms Add Strattera 40 mg QAM for attentional deficits will switch patient to IM mantenna if she has beneficial response Increase chlorpromazine to 100 mg qhs insomnia patient not interested in inpatient rehab she wishes to attend 12 step program when discharged she will return home and follow up with her therapist and ELECTRONICS INSTRUCTOR for medication management potential discharge will be for tuesday
[2017-10-11] MEDS: cloNIDine TAB* 0.1 MG PO PRN (20:07)
[2017-10-11] MEDS: Docusate CAP* 100 MG PO PRN (20:07)
[2017-10-11] MEDS ORDERED: chlorproMAZINE TAB* 100 MG PO SCH (21:00)
[2017-10-11] MEDS: Nicotine Patch Removal NOTE PATCH OFF SCH (21:13)
[2017-10-12] MEDS: Nicotine Inhaler* 10 MG AMP INH PRN ×4 (06:06→20:05)
[2017-10-12] MEDS: Nicotine PATCH 21 MG/24 HR* PATCH TRANSDERM SCH (06:06)
[2017-10-12] MEDS: Nicotine GUM* 2 MG PO PRN ×4 (06:07→20:05)
[2017-10-12] MEDS: Ibuprofen TAB* 600 MG PO PRN ×2 (06:55→16:01)
[2017-10-12] MEDS: cloNIDine TAB* 0.1 MG PO PRN ×2 (06:55→11:48)
[2017-10-12] MEDS: BuPROPion XL* 300 MG TAB.XL PO SCH (07:58)
[2017-10-12] MEDS: Vitamin THERAPEUTIC TAB PO SCH (07:58)
[2017-10-12] MEDS: ARIPiprazole TAB* 15 MG PO SCH (07:58)
[2017-10-12] MEDS: FLUoxetine CAP* 20 MG PO SCH (07:59)
[2017-10-12] MEDS: CMC: Atomoxetine (NF) 40 MG CAP PO SCH (08:00)
[2017-10-12] MEDS: clonazePAM TAB(*) 1 MG PO SCH ×2 (08:02→16:02)
[2017-10-12] MEDS: lamoTRIgine TAB(*) 25 MG PO SCH (08:02)
[2017-10-12] MEDS: Docusate CAP* 100 MG PO PRN (09:44)
[2017-10-12] MEDS: hydrOXYzine HCL TAB* 50 MG PO PRN ×2 (09:44→21:23)
--- NOTE | 2017-10-12 11:46 | PN ---
Subjective - Subjective Date of Service: 10/12/17 Service Type: [id number] Hosp care 15 min low complexity Subjective: Psychiatric Attending Progress Note: Patient reports feeling increased lethargy and tiredness today. BP running low normal with SBPin 105 range HR 78 today o2 saturation 100 % reports feeling restlessness/agitation when she first wakes up no further nausea better appetite today no sweating or hot flashes today Today was first day she received Strattera requested if klonopin could be spread three times daily as she feels it helps to have dose at bed Does not like the thorazine at bed. feels it makes her too groggy. has been taking clonidine 0.1 mg prn for withdrawal which is likely having additive effect with thorazine in terms of causing sedation and decrease in BP MSE: napping when I knocked on her room door but Celia came out willingly into the common area for interview. speech normal rate and volume mood: anxious but less dysphoric affect: normal range, congruent, Thought process: coherent Thought content: reports decreased rumination with regard to depressive themes. reports she has been having more postivie thoughts. using techniques we discussed to think optomistically, and to set goals that are realistic and that help her to feel good about herself. 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 shared family information including develomental history. Insight judgment: intact no SI, no HI today clear sensorium Assessment - Assessment Merits Inpatient Hospitalization: For Stabilization, For Discharge Planning Inpatient DSM-IV Dx: MDD, recurrent, moderate; Polysubstance use disorder; Borderline PD. rule out Obsessive Compulsive Disorder. Rule out Bipolar Disorder unspecified. Rule out Attention Deficit Hyperactivity Disorder combined versus Inattentive Clinical Impression: 37 year old single woman with history of mental illness since teens when she had onset of depression. Patient carries diagnosis of MDD recurrent but it is my belief that her history , mental status, family psychiatric history, and onset/time course of symptoms are more consistent with a bipolar spectrum disorder. The facts which support this diagnosis include: maternal history of highs and lows, poor response to multiple trials of antidepressants, poor occupational and interpersonal functioning starting in mid 20's, the presence of both depressive and mixed mood episodes. patient's self sabotage, unstable interpersonal relationships, poor impulse control, inability to tolerate being alone, limited ability to self soothe, and frantic efforts to avoid abandonment are consistent with borderline character pathology. To be sure patient has long standing comorbid eating disorder, panic disorder, and likely post traumatic stress disorder although I did not ask enough history to ascertain whether she actually meets criteria for PTSD at this time. Withdrawal syndrome is resolving but still having mild symptoms including nausea, hot flashes, agitation and insomnia. Patient's long standing preoccupation with themes of doubt, guilt needing to be perfect, worthlessness although consistent with mood disorder also can be construed as obsessional thinking. Diagnoses: Bipolar disorder unspecified currently depressed severe versus MDD recurrent severe Panic Disorder Borderline Personality Disorder polysubstance abuse cocaine use disorder Opioid dependence alcohol abuse history Cannabis abuse history opioid withdrawal syndrome rule out PTSD ADHD rule out OCD Plan - Plan Treatment Plan: Plan: individual, milieu, group therapy Prozac to 40 mg qam wellbutrin XL 300 mg qam Change Klonopin from 1 mg BID to 1 mg QAM, 0.5 mg Q 4PM and 0.5 mg QHS Lamictal 25 mg QAM for mood stabilization [id number] mg qam daily for acute and maintenance treatment of bipolar disorder Discussed RICE form of Abilify which is a miincluding benefits,side effects and patient gave informed consent to receive first injection on Tuesday. she will continue to take Abilify 15 mg daily for two weeks and then discontinue the oral abilify. D/C Clonidine 0.1 mg QID PRN for opiate w/d symptoms continue Strattera 40 mg QAM for attentional deficits D/C chlorpromazine Start Trazodone 50 mg QHS patient not interested in inpatient rehab she wishes to attend 12 step program when discharged she will return home and follow up with her therapist and ELEMENT SETTER for medication management potential discharge will be for tuesday
[2017-10-12] MEDS: Nicotine Patch Removal NOTE PATCH OFF SCH (21:52)
[2017-10-13] MEDS: Nicotine Inhaler* 10 MG AMP INH PRN ×3 (06:05→17:24)
[2017-10-13] MEDS: Nicotine PATCH 21 MG/24 HR* PATCH TRANSDERM SCH (06:05)
[2017-10-13] MEDS: Nicotine GUM* 2 MG PO PRN ×6 (06:05→20:36)
[2017-10-13] MEDS: ARIPiprazole TAB* 15 MG PO SCH (07:15)
[2017-10-13] MEDS: FLUoxetine CAP* 20 MG PO SCH (07:15)
[2017-10-13] MEDS: BuPROPion XL* 300 MG TAB.XL PO SCH (07:15)
[2017-10-13] MEDS: Vitamin THERAPEUTIC TAB PO SCH (07:15)
[2017-10-13] MEDS: clonazePAM TAB(*) 1 MG PO SCH (07:15)
[2017-10-13] MEDS: lamoTRIgine TAB(*) 25 MG PO SCH (07:16)
[2017-10-13] MEDS: hydrOXYzine HCL TAB* 50 MG PO PRN ×3 (08:02→22:28)
[2017-10-13] MEDS: CMC: Atomoxetine (NF) 40 MG CAP PO SCH (08:03)
[2017-10-13] MEDS: Ibuprofen TAB* 600 MG PO PRN ×2 (08:25→17:24)
--- NOTE | 2017-10-13 15:35 | PN ---
Subjective - Subjective Date of Service: 10/13/17 Subjective: still with anxiety very needy focused on medications highly dependent spoke with patient's HEARING AID ASSISTANT in depth about patient we coordinated treatment efforts and are in agreement about patients diagnosis being likely bipolar type II with severe borderline, dependent traits MSE: no SI no HI TP organized TC no psychotic symptoms speech normal Rate and volume insight partial judgment: currently intact but when hypomanic patient is prone to poor judgment Assessment - Assessment Merits Inpatient Hospitalization: For Discharge Planning - patient to be discharged tomorrow Inpatient DSM-IV Dx: MDD, recurrent, moderate; Polysubstance use disorder; Borderline PD. rule out Obsessive Compulsive Disorder. Rule out Bipolar Disorder unspecified. Rule out Attention Deficit Hyperactivity Disorder combined versus Inattentive Clinical Impression: 37 yo with bipolar II and mixed PD admitted with depression, agitation, opioid dependence, and 3 day cocaine binge. patient is stable and safe for discharge tomorrow. Plan - Plan Treatment Plan: Plan: individual, milieu, group therapy Prozac 40 mg qam wellbutrin XL 300 mg qam Klonopin from 1 mg BID to 1 mg QAM, 0.5 mg Q 4PM and 0.5 mg QHS Lamictal 25 mg QAM for mood stabilization [id number] mg qam daily Abilify Mantenna 400 mg x 1 prior to discharge tomorrow for acute and maintenance treatment of bipolar disorder Discussed RICE form of Abilify which is a miincluding benefits,side effects and patient gave informed consent to receive first injection on Tuesday. she will continue to take Abilify 15 mg daily for two weeks and then discontinue the oral abilify. Lower Strattera to 40 mg QAM for attentional deficits for one week then go up weekly to 40 mg then 60 mg then 80 mg Trazodone 50 mg QHS may repeat x 1 after one hour patient not interested in inpatient rehab she wishes to attend 12 step program when discharged she will return home and follow up with her therapist and HEARING AID ASSISTANT for medication management potential discharge will be for tuesday
[2017-10-13] MEDS: clonazePAM TAB(*) 0.5 MG PO SCH ×2 (15:52→20:37)
--- NOTE | 2017-10-13 16:32 | PN ---
MHU: Group Therapy Note - Service Type Service Type: [id number] Group Psychotherapy - Medication Education Group: Patient joined group late and left early. She was irritable when redirected for side conversation.
[2017-10-13] MEDS ORDERED: traZODone TAB* 50 MG TAB PO SCH (21:00)
[2017-10-13] MEDS: Nicotine Patch Removal NOTE PATCH OFF SCH (22:16)
[2017-10-14] MEDS: Nicotine GUM* 2 MG PO PRN ×4 (00:03→12:05)
[2017-10-14] MEDS: Nicotine PATCH 21 MG/24 HR* PATCH TRANSDERM SCH (06:52)
[2017-10-14] MEDS: Nicotine Inhaler* 10 MG AMP INH PRN (06:52)
[2017-10-14] MEDS: ARIPiprazole TAB* 15 MG PO SCH (07:48)
[2017-10-14] MEDS: Vitamin THERAPEUTIC TAB PO SCH (07:48)
[2017-10-14] MEDS: BuPROPion XL* 300 MG TAB.XL PO SCH (07:48)
[2017-10-14] MEDS: lamoTRIgine TAB(*) 25 MG PO SCH (07:48)
[2017-10-14] MEDS: clonazePAM TAB(*) 1 MG PO SCH (07:48)
[2017-10-14] MEDS: FLUoxetine CAP* 20 MG PO SCH (07:49)
[2017-10-14 08:18] VITALS: BP 117/84
[2017-10-14] MEDS ORDERED: CMCS: Atomoxetine(NF) 25 MG CAP PO SCH (09:00)
[2017-10-14] MEDS: Ibuprofen TAB* 600 MG PO PRN (09:04)
[2017-10-14] MEDS: hydrOXYzine HCL TAB* 50 MG PO PRN (10:12)
--- NOTE | 2017-10-14 11:34 | DS ---
Treatment Course & Assessment Clinical Course & Impression: 37 yo with bipolar II and mixed PD admitted with depression, agitation, opioid dependence, and 3 day cocaine binge. patient is stable and safe for discharge tomorrow. Inpatient DSM-IV Dx: MDD, recurrent, moderate; Polysubstance use disorder; Borderline PD. rule out Obsessive Compulsive Disorder. Rule out Bipolar Disorder unspecified. Rule out Attention Deficit Hyperactivity Disorder combined versus Inattentive Discharge Planning - Discharge Planning Medications: Current Medications Al Hydrox/Mg Hydrox/Simethicone (Maalox Plus*) 30 ml PO Q4H PRN PRN Reason: INDIGESTION Aripiprazole (Abilify Tab*) 15 mg PO DAILY [facility] Last Admin: 10/14/17 07:48 Dose: 15 mg Atomoxetine HCl (Strattera(Nf)) 25 mg PO DAILY@09 [facility] PRN Reason: Protocol Last Admin: 10/14/17 07:49 Dose: 25 mg Bupropion HCl (Bupropion Xl*) 300 mg PO DAILY [facility] Last Admin: 10/14/17 07:48 Dose: 300 mg Clonazepam (Klonopin Tab(*)) 1 mg PO DAILY [facility] Last Admin: 10/14/17 07:48 Dose: 1 mg Clonazepam (Klonopin Tab(*)) 0.5 mg PO BID@1600,2100 [facility] Last Admin: 10/13/17 20:37 Dose: 0.5 mg Docusate Sodium (Colace Cap*) 100 mg PO BID PRN PRN Reason: CONSTIPATION Last Admin: 10/12/17 09:44 Dose: 100 mg Fluoxetine HCl (Prozac Cap*) 40 mg PO DAILY [facility] Last Admin: 10/14/17 07:49 Dose: 40 mg Hydroxyzine HCl (Atarax Tab*) 50 mg PO Q6H PRN PRN Reason: ANXIETY Last Admin: 10/14/17 10:12 Dose: 50 mg Ibuprofen (Motrin Tab*) 600 mg PO Q6H PRN PRN Reason: PAIN Last Admin: 10/14/17 09:04 Dose: 600 mg Lamotrigine (Lamictal Tab(*)) 25 mg PO DAILY@09 [facility] Last Admin: 10/14/17 07:48 Dose: 25 mg Multivitamins (Theragran Tab*) 1 tab PO DAILY [facility] Last Admin: 10/14/17 07:48 Dose: 1 tab Nicotine (Nicotine Inhaler*) 10 mg INH Q2H PRN PRN Reason: CRAVING Last Admin: 10/14/17 06:52 Dose: 10 mg Nicotine (Nicotine Patch 21 Mg/24 Hr*) 1 patch TRANSDERM DAILY@0800 [facility] Last Admin: 10/14/17 06:52 Dose: 1 patch Nicotine Polacrilex (Nicotine Gum*) 2 mg PO Q2H PRN PRN Reason: CRAVING Last Admin: 10/14/17 10:12 Dose: 2 mg Pharmacy Profile Note (Nicotine Patch Removal Note*) 1 note PATCH OFF 2100 [facility] Last Admin: 10/13/17 22:16 Dose: 1 note Trazodone HCl (Desyrel Tab*) 50 mg PO BEDTIME [facility] Last Admin: 10/13/17 20:35 Dose: 50 mg Discharge Planning: Prescriptions provided for discharge [] Yes [] No Follow up care details as per social work arrangements. Patient response to discharge plan: [] eager for discharge [] agreeable with discharge plan [] ambivalent about discharge [] disagrees with discharge today
--- NOTE | 2017-10-14 12:51 | PN ---
MHU: Group Therapy Note - Service Type Service Type: [id number] Group Psychotherapy - Cognitive Behavioral Group Therapy ( CBT):Patient was attentive and participatory in CBT programming this morning, and remained in good behavioral control. Patient expressed positive insights regarding relevant treatment interventions and goals.
== END 2017-10-14 13:30 | disposition home or self-care (01) | DRG 885 ==
LOC: ED 19:21 → BSU 23:49
PROVIDERS: ADMIT Psychiatry & Neurology Psychiatry; ATTEND Psychiatry & Neurology Psychiatry
PROC: GZHZZZZ Group Psychotherapy (ICD-10-PCS; principal; 2017-10-11)
DX: F31.4 Bipolar disorder, current episode depressed, severe, without psychotic features (principal); I95.9 Hypotension, unspecified; F50.2 Bulimia nervosa; R45.851 Suicidal ideations; F11.20 Opioid dependence, uncomplicated; R45.1 Restlessness and agitation; F60.3 Borderline personality disorder; F42.9 Obsessive-compulsive disorder, unspecified; F90.0 Attention-deficit hyperactivity disorder, predominantly inattentive type; F41.9 Anxiety disorder, unspecified; F17.210 Nicotine dependence, cigarettes, uncomplicated; F41.0 Panic disorder [episodic paroxysmal anxiety]; F19.10 Other psychoactive substance abuse, uncomplicated; F14.10 Cocaine abuse, uncomplicated; F12.10 Cannabis abuse, uncomplicated; K59.00 Constipation, unspecified; R53.83 Other fatigue; G47.00 Insomnia, unspecified; Z81.1 Family history of alcohol abuse and dependence; Z91.410 Personal history of adult physical and sexual abuse; Z81.8 Family history of other mental and behavioral disorders; Z91.5 Personal history of self-harm; Z82.0 Family history of epilepsy and other diseases of the nervous system; Z23 Encounter for immunization
CPT/HCPCS: 36415; 80053; 80307; 80320; 80329; 81003; 84443; 84702; 85025; 90686; 90853; 99222; 99231; 99238; A9270-GY; G0480

== ENCOUNTER 2017-11-30 18:35 | Emergency (ER) | payer MEDICAID ==
[2017-11-30] MEDS ORDERED: clonazePAM TAB(*) 1 MG PO ONE (19:28)
[2017-11-30] MEDS ORDERED: ARIPiprazole TAB* 5 MG PO ONE (19:28)
[2017-11-30] MEDS ORDERED: clonazePAM TAB(*) 0.5 MG PO ONE ×2 (20:00)
[2017-11-30 20:05] VITALS: BP 144/103
--- NOTE | 2017-11-30 22:14 | ED ---
Jc Mcdonald Nilda, scribed for Javier Bella MD on 11/30/17 at 1934 . Substance Abuse/Use - HPI Summary HPI Summary: This patient is a 37 year old F presenting to [facility] with a chief complaint of constant withdrawal symptoms from Abilify for the past week. The patient rates the pain 0/10 in severity. Symptoms aggravated and alleviated by nothing. Patient reports tremors, anxiety, and disorientation, but denies acute dysfunction. Patient states her last dose was 6-7 days ago, and she has not been able to receive the medication due to her current insurance issues. She will have her insurance renewed by the end of the month and needs assistance refilling her scripts until then. She notes she was told to have a doctor associated with Medicaid fill those prescriptions. Her usual medications include Abilify (10 mg per day), Limictal (50 mg per day, for mood stabilization ), and Klonopin (1 mg). She states her Limictal will also run out tomorrow, so she'll also need assistance with re-filling this medication. She did not bring her Klonopin to the ED, and notes that she would like to receive a dose here. PMHx includes anxiety and depression. - History Of Current Complaint Chief Complaint: EDGeneral Stated Complaint: NEEDS MEDICATION Time Seen by Provider: 11/30/17 18:58 Hx Obtained From: Patient Hx Last Menstrual Period: 09/23/17 Ingestion History: Type/Name Of Drug - Abilify Timing Of Abuse: Recent Cessation For A Period Of - 6-7 days Character: Anxious Aggravating Factor(s): Nothing Alleviating Factor(s): Nothing Associated Signs And Symptoms: Other: - tremors, anxiety, and disorientation, but denies acute dysfunction - Allergies/Home Medications Allergies/Adverse Reactions: Allergies Allergy/AdvReac Type Severity Reaction Status Date / Time No Known Allergies Allergy Verified 11/30/17 18:43 PMH/Surg Hx/FS Hx/Imm Hx Endocrine/Hematology History: Denies: Hx Diabetes, Hx Thyroid Disease Cardiovascular History: Denies: Hx Cardiac Arrest, Hx Hypertension Respiratory History: Denies: Hx Asthma, Hx Chronic Obstructive Pulmonary Disease (COPD), Hx Lung Cancer GI History: Denies: Hx Ulcer History: Denies: Hx Kidney Infection Musculoskeletal History: Reports: Hx Orthopedic Injury - crush injury to right pointer finger, Other Musculoskeletal History - CARPAL TUNNEL SYNDROME R WRIST Sensory History: Denies: Hx Contacts or Glasses, Hx Hearing Aid Opthamlomology History: Denies: Hx Contacts or Glasses Neurological History: Denies: Hx Headaches, Hx Migraine, Hx Seizures Psychiatric History: Reports: Hx Anxiety, Hx Eating Disorder - BULEMIA- remission over 8yo, Hx Depression, Hx Inpatient Treatment Denies: Hx of Violent Episodes Against Others - Surgical History Surgery Procedure, Year, and Place: wisdom teeth Infectious Disease History: No Infectious Disease History: Denies: Hx Clostridium Difficile, Hx Hepatitis, Hx Human Immunodeficiency Virus (HIV), Hx of Known/Suspected MRSA, Hx Shingles, Hx Tuberculosis, Hx Known/ Suspected VRE, Hx Known/Suspected VRSA, History Other Infectious Disease, Traveled Outside the [place] in Last 30 Days - Family History Known Family History: Positive: Cardiac Disease, Other - Alcoholism, Breast CA , parkinson's - Social History Alcohol Use: None Hx Substance Use: Yes Substance Use Type: Reports: Prescribed Substance Use Comment - Amount & Last Used: today Hx Tobacco Use: Yes Smoking Status (MU): Heavy Every Day Tobacco Smoker Type: Cigarettes, eCigarettes Amount Used/How Often: 1/2 PPD Length of Time of Smoking/Using Tobacco: 20YRS Have You Smoked in the Last Year: Yes Review of Systems Negative: Shortness Of Breath Neurological: Other - tremors Psychological: Other - disoriented; negative acute dysfunction Positive: Anxious All Other Systems Reviewed And Are Negative: Yes Physical Exam - Summary Physical Exam Summary: General: well-appearing, no pain distress Skin: warm, color reflects adequate perfusion, dry Head: normal Eyes: EOMI, TUAN ENT: normal Neck: supple, nontender Respiratory: CTA, breath sounds present Cardiovascular: RRR Abdomen: soft, nontender Bowel: present Musculoskeletal: normal, strength/ROM intact Neurological: normal, sensory/motor intact, A&O x3 Psychological: affect/mood appropriate Triage Information Reviewed: Yes Vital Signs On Initial Exam: Initial Vitals Temp Pulse Resp BP Pulse Ox 99.0 F 113 22 140/88 100 11/30/17 18:39 11/30/17 18:39 11/30/17 18:39 11/30/17 18:39 11/30/17 18:39 Vital Signs Reviewed: Yes Diagnostics - Vital Signs Vital Signs Temp Pulse Resp BP Pulse Ox 11/30/17 19:10 65 0 99 11/30/17 18:39 99.0 F 113 22 140/88 100 - Laboratory Lab Statement: Any lab studies that have been ordered have been reviewed, and results considered in the medical decision making process. Course/Dx - Course Assessment/Plan: BP noted and advised to follow up with PCP. Allergies noted. Medications reviewed. - Diagnoses Provider Diagnoses: Medication refill Discharge - Discharge Plan Condition: Stable Disposition: HOME Prescriptions: ARIPiprazole [Abilify] 10 mg PO DAILY #14 tablet lamoTRIgine TAB(*) [LaMICtal TAB(*)] 50 mg PO DAILY #14 tab Patient Education Materials: Medicine Refill (ED) Referrals: Richie Hinds NP [Primary Care Provider] - Additional Instructions: FOLLOW UP WITH YOUR DOCTOR. RETURN TO THE EMERGENCY DEPARTMENT FOR ANY WORSENING OF YOUR CONDITION OR QUESTIONS OR CONCERNS. The documentation as recorded by the Jc baptiste Nilda accurately reflects the service I personally performed and the decisions made by me, Javier Bella MD.
== END 2017-11-30 20:08 | disposition home or self-care (01) ==
LOC: ED 18:35
DX: Z76.0 Encounter for issue of repeat prescription (principal); F41.9 Anxiety disorder, unspecified; F32.9 Major depressive disorder, single episode, unspecified; F17.210 Nicotine dependence, cigarettes, uncomplicated
CPT/HCPCS: 99282; A9270-GY

== ENCOUNTER → 2019-11-02 17:52 | Emergency (ER) | payer MEDICAID, OTHER ==
[2019-11-02 18:00] VITALS: BP 130/76
--- NOTE | 2019-11-02 18:24 | ED ---
Psychiatric Complaint - HPI Summary HPI Summary: Patient is a 39 y/o F presenting to the ED for a psychiatric complaint. Patient complains of SI, but denies a plan. She denies attempts in the past, HI, hallucinations, nausea, vomiting, diarrhea, or myalgia. Her SI has since resolved. Patient reports recent stress, including news that her father was in a MVA recently. She takes Prozac, Wellbutrin, and Abilify for a PMHx of depression and anxiety. She notes a mental health evaluation at [facility] in the past. PSHx is significant for wisdom teeth removal. She admits tobacco, marijuana, and cocaine use, but denies alcohol use. She last uses cocaine 2 weeks ago. Allergies noted. Medications reviewed. - History Of Current Complaint Chief Complaint: EDSuicidal Time Seen by Provider: 11/02/19 18:06 Hx Obtained From: Patient Hx Last Menstrual Period: 09/23/17 Onset/Duration: Sudden Onset, Resolved Timing: Constant Severity Initially: Moderate Severity Currently: Moderate Character: Depressed Aggravating Factor(s): Recent Stress Alleviating Factor(s): Nothing Associated Signs And Symptoms: Negative: Hallucinating Related History: Positive For: Prior Psychiatric Issues Has Suicidal: Reports: Thoughts. Denies: With A Plan Has Homicidal: Denies: Thoughts - Allergies/Home Medications Allergies/Adverse Reactions: Allergies Allergy/AdvReac Type Severity Reaction Status Date / Time No Known Allergies Allergy Verified 11/02/19 18:14 PMH/Surg Hx/FS Hx/Imm Hx Previously Healthy: Yes Endocrine/Hematology History: Denies: Hx Diabetes, Hx Thyroid Disease Cardiovascular History: Denies: Hx Cardiac Arrest, Hx Hypertension Respiratory History: Denies: Hx Asthma, Hx Chronic Obstructive Pulmonary Disease (COPD), Hx Lung Cancer GI History: Denies: Hx Ulcer History: Denies: Hx Kidney Infection Musculoskeletal History: Reports: Hx Orthopedic Injury - crush injury to right pointer finger, Other Musculoskeletal History - CARPAL TUNNEL SYNDROME R WRIST Sensory History: Denies: Hx Contacts or Glasses, Hx Legally Blind, Hx Deafness, Hx Hearing Aid Opthamlomology History: Denies: Hx Contacts or Glasses, Hx Legally Blind EENT History: Denies: Hx Deafness Neurological History: Denies: Hx Headaches, Hx Migraine, Hx Seizures Psychiatric History: Reports: Hx Anxiety, Hx Eating Disorder - BULEMIA- remission over 8yo, Hx Depression, Hx Inpatient Treatment Denies: Hx of Violent Episodes Against Others - Surgical History Surgical History: Yes Surgery Procedure, Year, and Place: wisdom teeth Infectious Disease History: No Infectious Disease History: Denies: Hx Clostridium Difficile, Hx Hepatitis, Hx Human Immunodeficiency Virus (HIV), Hx of Known/Suspected MRSA, Hx Shingles, Hx Tuberculosis, Hx Known/ Suspected VRE, Hx Known/Suspected VRSA, History Other Infectious Disease, Traveled Outside the [place] in Last 30 Days - Family History Known Family History: Positive: Cardiac Disease, Other - Alcoholism, Breast CA , parkinson's - Social History Occupation: Works From/At Home Lives: With Family Alcohol Use: None Hx Substance Use: Yes Substance Use Type: Reports: Cocaine, Marijuana, Prescribed Substance Use Comment - Amount & Last Used: today Hx Tobacco Use: Yes Smoking Status (MU): Heavy Every Day Tobacco Smoker Type: Cigarettes, eCigarettes Amount Used/How Often: 1/2 PPD Length of Time of Smoking/Using Tobacco: 20YRS Have You Smoked in the Last Year: Yes Review of Systems Negative: Vomiting, Diarrhea, Nausea Negative: Myalgia Psychological: Other - Positive SI; negative HI, hallucinations Positive: Depressed All Other Systems Reviewed And Are Negative: Yes Physical Exam - Summary Physical Exam Summary: Constitutional: Well-developed, Well-nourished, Alert. (-) Distressed Skin: Warm, Dry HENT: Normocephalic; Atraumatic Eyes: Conjunctiva normal Neck: Musculoskeletal ROM normal neck. (-) JVD, (-) Stridor, (-) Tracheal deviation Cardio: Rhythm regular, rate normal, Heart sounds normal; Intact distal pulses; Radial pulses are 2+ and symmetric. (-) Murmur Pulmonary/Chest wall: Effort normal. (-) Respiratory distress, (-) Wheezes, (-) Rales Abd: Soft, (-) tenderness, (-) Distension, (-) Guarding, (-) Rebound Musculoskeletal: (-) Edema Lymph: (-) Cervical adenopathy Neuro: Alert, Oriented x3 Psych: Mood and affect Normal Triage Information Reviewed: Yes Vital Signs On Initial Exam: Initial Vitals Temp Pulse Resp BP Pulse Ox 98.9 F 82 18 130/76 98 11/02/19 17:57 11/02/19 17:57 11/02/19 17:57 11/02/19 17:57 11/02/19 17:57 Vital Signs Reviewed: Yes Procedures - Sedation Patient Received Moderate/Deep Sedation with Procedure: No Diagnostics - Vital Signs Vital Signs Temp Pulse Resp BP Pulse Ox 11/02/19 17:57 98.9 F 82 18 130/76 98 - Laboratory Result Diagrams: 11/02/19 19:32 11/02/19 19:32 Lab Statement: Any lab studies that have been ordered have been reviewed, and results considered in the medical decision making process. Re-Evaluation - Re-Evaluation First Eval Re-Evaluation Time: 18:45 Change: Unchanged Comment: At 18:45, patient is medically cleared for a mental health evaluation. Course/Dx - Course Course Of Treatment: Patient is here with suicidal ideation that has since passed since arriving to the ED. Patient is medically cleared by myself. Patient was evaluated by the psychiatric team and they recommended outpatient treatment. - Differential Dx/Clinical Impression Provider Diagnosis: Depressive disorder - Physician Notifications Discussed Care Of Patient With: Mac Ruiz - At 19:44, strategic account executive reports that patients case was reviewed by Dr. Ruiz who will discharge the patient with a diagnosis of depressive disorder. Time Discussed With Above Provider: 19:44 Instructed by Provider To: Other - Discharge Discharge ED - Sign-Out/Discharge Documenting (check all that apply): Patient Departure - Discharge - Discharge Plan Condition: Stable Disposition: HOME Patient Education Materials: Depression (ED), Help Prevent Suicide (ED) Referrals: Richie Hinds MANAGER ACCOUNT MANAGEMENT [Primary Care Provider] - - Billing Disposition and Condition Condition: STABLE Disposition: Home - Attestation Statements Document Initiated by Kandiceibchris: Yes Documenting Scribe: Jammie Damon Provider For Whom Kandiceibchris is Documenting (Include Credential): Antony Tierney MD Scribe Attestation: Jammie Mcdonald, scribed for Antony Tierney MD on 11/02/19 at 2045. Scribe Documentation Reviewed: Yes Provider Attestation: The documentation as recorded by the Jammie baptiste accurately reflects the service I personally performed and the decisions made by me, Antony Tierney MD Status of Scribe Document: Viewed
[2019-11-02 19:41] LABS: ABS Eosinophils 0.2 10^3/ul (0-0.6); ABS Lymphocytes 1.3 10^3/ul (1.0-4.8); ABS Monocytes 0.6 10^3/ul (0-0.8); ABS Neutrophils 6.1 10^3/ul (1.5-7.7); Hematocrit 34 % (35-47); Hemoglobin 11.1 g/dL (12.0-16.0); Lymphocyte % 15.2 %; Mean Corpuscular HGB Conc 33 g/dL (31-36); Mean Corpuscular Hemoglobin 27 pg (27-31); Mean Corpuscular Volume 82 fL (80-97); Mean Platelet Volume 7.5 fL (7.4-10.4); Platelet Count 415 10^3/uL (150-450); Red Blood Count 4.09 10^6 /uL (3.70-4.87); Red Cell Distribution Width 20 % (10-15); White Blood Count 8.2 10^3/uL (3.5-10.8)
[2019-11-02 19:56] LABS: ALT 53 U/L (7-52); AST 57 U/L (13-39); Albumin/Globulin Ratio 1.1 (1-3); Alkaline Phosphatase 78 U/L (34-104); Anion Gap 6 mmol/L (2-11); BUN/Creatinine Ratio 18.9 (8-20); Blood Urea Nitrogen 14 mg/dL (6-24); CO2 Carbon Dioxide 26 mmol/L (22-32); Calcium 9.3 mg/dL (8.6-10.3); Chloride 106 mmol/L (101-111); EGFR African American 104.7 (>60); EGFR Non-African American 86.5 (>60); Globulin 3.8 g/dL (2-4); Glucose 87 mg/dL (70-100); Potassium 4.3 mmol/L (3.5-5.0); Sodium 138 mmol/L (135-145); Total Protein 7.8 g/dL (6.4-8.9)
[2019-11-02 20:02] LABS: HCG Pregnancy < 0.60 mIU/mL
[2019-11-02 20:07] LABS: Acetaminophen < 15 mcg/mL; Alcohol < 10 mg/dL (<10); Salicylate < 2.50 mg/dL (<30)
== END | disposition home or self-care (01) ==
LOC: ED 17:52
DX: F32.9 Major depressive disorder, single episode, unspecified (principal); F41.9 Anxiety disorder, unspecified; F17.290 Nicotine dependence, other tobacco product, uncomplicated; Z79.899 Other long term (current) drug therapy
CPT/HCPCS: 36415; 80053; 80320; 80329; 84702; 85025; 99285; G0480

== ENCOUNTER 2020-06-14 14:38 | Inpatient (IN) ==
[2020-06-14] MEDS ORDERED: diPHENhydraMINE 25 mg TAB PO ONE ×2 (14:58→22:31)
[2020-06-14] MEDS ORDERED: Al Hydrox/Mg Hydrox/Simet LIQ 30 ML UDC PO PRN (18:02)
[2020-06-14] MEDS ORDERED: Nicotine Lozenge mini 2 MG LOZNG.MINI MT PRN (19:00)
[2020-06-14] MEDS: Nicotine GUM 2MG FRUIT FLAVOR PO PRN (20:58)
[2020-06-14] MEDS: Calamine/Pramoxine LOTION 8%/1% 180 ML TOPICAL PRN (22:32)
[2020-06-15] MEDS: diPHENhydraMINE 25 mg TAB PO PRN ×2 (03:45→10:42)
[2020-06-15] MEDS: Nicotine GUM 2MG FRUIT FLAVOR PO PRN ×3 (07:32→20:17)
[2020-06-15] MEDS: Calamine/Pramoxine LOTION 8%/1% 180 ML TOPICAL PRN (07:50)
[2020-06-15] MEDS: Vitamin THERAPEUTIC TAB PO SCH (10:45)
[2020-06-15] MEDS: Buprenorp/Nalox 8-2 MG SL TAB PO SCH (20:15)
[2020-06-16] MEDS: Buprenorp/Nalox 8-2 MG SL TAB PO SCH ×2 (09:43→14:10)
[2020-06-16] MEDS: Vitamin THERAPEUTIC TAB PO SCH (09:43)
[2020-06-16] MEDS: Nicotine GUM 2MG FRUIT FLAVOR PO PRN ×3 (09:44→20:57)
[2020-06-16] MEDS: Buprenorp/Nalox 4-1 MG FILM SL FILM SCH (20:58)
[2020-06-17] MEDS: Vitamin THERAPEUTIC TAB PO SCH (10:11)
[2020-06-17] MEDS: Buprenorp/Nalox 4-1 MG FILM SL FILM SCH ×2 (10:13→20:21)
[2020-06-17] MEDS: Nicotine GUM 2MG FRUIT FLAVOR PO PRN ×2 (10:13→22:07)
[2020-06-17] MEDS ORDERED: Nicotine PATCH 21 MG/24 HR PATCH ONE (10:14)
[2020-06-17] MEDS: Nicotine PATCH 21 MG/24 HR PATCH TRANSDERM SCH (10:34)
[2020-06-17] MEDS: Calamine/Pramoxine LOTION 8%/1% 180 ML TOPICAL PRN (14:44)
[2020-06-18] MEDS: Nicotine PATCH 21 MG/24 HR PATCH TRANSDERM SCH (07:37)
[2020-06-18] MEDS: Vitamin THERAPEUTIC TAB PO SCH (07:41)
[2020-06-18] MEDS: Buprenorp/Nalox 4-1 MG FILM SL FILM SCH ×2 (07:42→21:32)
[2020-06-18] MEDS: Nicotine GUM 2MG FRUIT FLAVOR PO PRN ×2 (11:08→21:25)
[2020-06-18] MEDS ORDERED: CMCS:diPHENhydraMINE CREAM 2%(NF) 28 gm TUBE TOPICAL PRN (13:04)
[2020-06-19] MEDS: Vitamin THERAPEUTIC TAB PO SCH (08:16)
[2020-06-19] MEDS: Nicotine PATCH 21 MG/24 HR PATCH TRANSDERM SCH (08:18)
[2020-06-19] MEDS: Buprenorp/Nalox 4-1 MG FILM SL FILM SCH ×2 (08:19→22:28)
[2020-06-19] MEDS: Nicotine GUM 2MG FRUIT FLAVOR PO PRN ×2 (12:07→16:30)
[2020-06-19] MEDS: CMCS: diPHENhydraMINE CREAM 2%(NF) 28 gm TUBE TOPICAL PRN (13:09)
[2020-06-20] MEDS: Vitamin THERAPEUTIC TAB PO SCH (08:44)
[2020-06-20] MEDS: Nicotine PATCH 21 MG/24 HR PATCH TRANSDERM SCH (08:46)
[2020-06-20] MEDS: Buprenorp/Nalox 4-1 MG FILM SL FILM SCH ×2 (08:46→20:26)
[2020-06-20] MEDS: CMCS: diPHENhydraMINE CREAM 2%(NF) 28 gm TUBE TOPICAL PRN (11:27)
[2020-06-20] MEDS: Nicotine GUM 2MG FRUIT FLAVOR PO PRN (12:21)
[2020-06-21] MEDS: Vitamin THERAPEUTIC TAB PO SCH (08:12)
[2020-06-21] MEDS: Nicotine PATCH 21 MG/24 HR PATCH TRANSDERM SCH (08:15)
[2020-06-21] MEDS: Buprenorp/Nalox 4-1 MG FILM SL FILM SCH ×2 (08:16→21:38)
[2020-06-21] MEDS: Nicotine GUM 2MG FRUIT FLAVOR PO PRN ×2 (12:01→19:38)
[2020-06-22] MEDS: Nicotine GUM 2MG FRUIT FLAVOR PO PRN ×2 (01:10→19:34)
[2020-06-22 08:07] LABS: HDL Cholesterol 39.2 mg/dL
[2020-06-22] MEDS: Vitamin THERAPEUTIC TAB PO SCH (08:12)
[2020-06-22] MEDS: Buprenorp/Nalox 4-1 MG FILM SL FILM SCH ×2 (08:14→20:01)
[2020-06-22] MEDS: Nicotine PATCH 21 MG/24 HR PATCH TRANSDERM SCH (08:15)
[2020-06-23] MEDS: Buprenorp/Nalox 4-1 MG FILM SL FILM SCH ×2 (08:30→20:08)
[2020-06-23] MEDS: Nicotine PATCH 21 MG/24 HR PATCH TRANSDERM SCH (08:31)
[2020-06-23] MEDS: Vitamin THERAPEUTIC TAB PO SCH (08:35)
[2020-06-23] MEDS: Nicotine GUM 2MG FRUIT FLAVOR PO PRN ×2 (13:14→20:18)
[2020-06-24] MEDS: Vitamin THERAPEUTIC TAB PO SCH (07:31)
[2020-06-24] MEDS: Nicotine PATCH 21 MG/24 HR PATCH TRANSDERM SCH (07:32)
[2020-06-24] MEDS: Buprenorp/Nalox 4-1 MG FILM SL FILM SCH (07:33)
[2020-06-24] MEDS: Nicotine GUM 2MG FRUIT FLAVOR PO PRN (10:08)
[2020-06-24] MEDS ORDERED: Benzocaine/Menthol LOZ PO PRN (11:07)
[2020-06-24] MEDS ORDERED: Ibuprofen TAB* 400 MG Q6H PRN PO (19:24)
[2020-06-24] MEDS ORDERED: Loperamide CAP* 2 MG AFTER EACH LOOSE STOOL MDD 16 MG PO PRN (19:24)
[2020-06-24] MEDS ORDERED: Loperamide CAP* 4 MG INITIAL PRN DOSE PO (19:24)
[2020-06-24] MEDS ORDERED: cloNIDine TAB* 0.1 MG ADDITIONAL PRN DOSES DAYS 1-4 PO (20:00)
[2020-06-24] MEDS ORDERED: cloNIDine TAB* 0.4 FIRST DOSE PT > 70 KG PO ONE (20:00)
[2020-06-24] MEDS: Carisoprodol TAB* 350 MG Q6H PRN PO (21:27)
[2020-06-24] MEDS: cloNIDine TAB* 0.1 MG Q4H DAYS 1 TO 4 PO SCH (22:31)
[2020-06-25] MEDS: cloNIDine TAB* 0.1 MG Q4H DAYS 1 TO 4 PO SCH ×2 (01:56→06:17)
[2020-06-25] MEDS: Carisoprodol TAB* 350 MG Q6H PRN PO (06:18)
[2020-06-25] MEDS: Buprenorp/Nalox 4-1 MG FILM SL FILM SCH ×3 (09:23→22:49)
[2020-06-25] MEDS: Nicotine PATCH 21 MG/24 HR PATCH TRANSDERM SCH (09:39)
[2020-06-25] MEDS: Vitamin THERAPEUTIC TAB PO SCH (09:46)
[2020-06-25] MEDS: Nicotine GUM 2MG FRUIT FLAVOR PO PRN (16:05)
[2020-06-26] MEDS: Buprenorp/Nalox 4-1 MG FILM SL FILM SCH (08:22)
[2020-06-26] MEDS: Vitamin THERAPEUTIC TAB PO SCH (08:25)
[2020-06-26] MEDS: Nicotine GUM 2MG FRUIT FLAVOR PO PRN (08:25)
[2020-06-26] MEDS: Nicotine PATCH 21 MG/24 HR PATCH TRANSDERM SCH ×2 (08:27→10:40)
[2020-06-26 09:18] VITALS: BP 123/77
[2020-06-28] MEDS ORDERED: cloNIDine TAB* DOSING for DAY 5 PO SCH (06:00)
[2020-06-29] MEDS ORDERED: cloNIDine TAB* DOSING for DAY 6 PO SCH (06:00)
[2020-06-30] MEDS ORDERED: cloNIDine TAB* DOSING FOR DAY 7 PO SCH (09:00)
== END 2020-06-26 11:00 | disposition home or self-care (01) | DRG 773 ==
LOC: ED 14:38 → BSU 17:00
PROVIDERS: ADMIT Psychiatry & Neurology Psychiatry; ATTEND Psychiatry & Neurology Psychiatry

== ENCOUNTER 2021-02-18 15:33 | Inpatient (IN) ==
[2021-02-18 16:32] LABS: ABS Basophils 0.1 10^3/ul (0-0.2); ABS Eosinophils 0.1 10^3/ul (0-0.6); ABS Lymphocytes 2.3 10^3/ul (1.0-4.8); ABS Monocytes 0.7 10^3/ul (0-0.8); ABS Neutrophils 5.8 10^3/ul (1.5-7.7); Hematocrit 38 % (35-47); Hemoglobin 13.3 g/dL (12.0-16.0); Lymphocyte % 25.9 %; Mean Corpuscular HGB Conc 35 g/dL (31-36); Mean Corpuscular Hemoglobin 31 pg (27-31); Mean Corpuscular Volume 89 fL (80-97); Mean Platelet Volume 7.6 fL (7.4-10.4); Nucleated Red Blood Cells % 0.1; Platelet Count 438 10^3/uL (150-450); Red Blood Count 4.33 10^6 /uL (3.70-4.87); Red Cell Distribution Width 15 % (10-15); White Blood Count 8.9 10^3/uL (3.5-10.8)
[2021-02-18 16:51] LABS: ALT 16 U/L (7-52); AST 20 U/L (13-39); Albumin 4.2 g/dL (3.2-5.2); Albumin/Globulin Ratio 1.3 (1-3); Alkaline Phosphatase 61 U/L (34-104); Anion Gap 8 mmol/L (2-11); Blood Urea Nitrogen 19 mg/dL (6-24); CO2 Carbon Dioxide 22 mmol/L (22-32); Calcium 9.3 mg/dL (8.6-10.3); Chloride 106 mmol/L (101-111); EGFR African American 93.8 (>60); EGFR Non-African American 77.5 (>60); Globulin 3.2 g/dL (2-4); Glucose 92 mg/dL (70-100); Potassium 3.2 mmol/L (3.5-5.0); Sodium 136 mmol/L (135-145); Total Protein 7.4 g/dL (6.4-8.9)
[2021-02-18 16:57] LABS: HCG Pregnancy < 0.60 mIU/mL
[2021-02-18 17:01] LABS: Acetaminophen < 15 mcg/mL; Alcohol, S < 10 mg/dL (<10); Salicylate < 2.50 mg/dL (<30)
[2021-02-18 17:15] LABS: TSH Ultra Thyroid Stim Horm 1.06 mcIU/mL (0.34-5.60)
[2021-02-18] MEDS: Nicotine GUM 4MG FRUIT FLAVOR PO PRN (18:31)
[2021-02-18 21:46] LABS: Urine Appearance Cloudy; Urine Bilirubin Negative (Negative); Urine Blood 3+ (Negative); Urine Color Yellow; Urine Glucose Negative (Negative); Urine Ketones 2+ (Negative); Urine Nitrite Negative (Negative); Urine Protein 1+(30 mg/dL) (Negative); Urine Specific Gravity 1.025 (1.002-1.030); Urine Urobilinogen Negative (Negative)
[2021-02-18 21:52] LABS: Urine Bacteria Absent (Absent); Urine Red Blood Cell 3+(>10/hpf) (Absent); Urine Squamous Epithelial Cell Present (Absent); Urine White Blood Cell Absent (Absent)
[2021-02-18 22:03] LABS: Urine Benzodiazepine Screen None Detected (None Detect); Urine Cannabinoids Screen None Detected (None Detect); Urine Opiates Screen None Detected (None Detect)
[2021-02-18] MEDS ORDERED: Al Hydrox/Mg Hydrox/Simet LIQ 30 ML UDC PO PRN (23:20)
[2021-02-19 08:49] LABS: Cholesterol 156 mg/dL; LDL Cholesterol 94 mg/dL; Triglycerides 105 mg/dL
[2021-02-19 08:57] LABS: HCG Pregnancy < 0.60 mIU/mL
[2021-02-19] MEDS: Nicotine GUM 2MG FRUIT FLAVOR PO PRN (09:05)
[2021-02-19] MEDS: Nicotine PATCH 21 MG/24 HR PATCH TRANSDERM SCH (09:05)
[2021-02-19] MEDS: Vitamin THERAPEUTIC TAB PO SCH (09:05)
[2021-02-19] MEDS: Ondansetron ODT 4 mg TAB 4 MG TAB ONE ×2 (18:21→18:26)
[2021-02-19] MEDS ORDERED: Ondansetron ODT 4 mg TAB 4 MG TAB PO PRN (18:21)
[2021-02-20] MEDS: Vitamin THERAPEUTIC TAB PO SCH (08:08)
[2021-02-20] MEDS: Nicotine PATCH 21 MG/24 HR PATCH TRANSDERM SCH (08:10)
[2021-02-20] MEDS: Nicotine GUM 2MG FRUIT FLAVOR PO PRN (14:27)
[2021-02-21] MEDS: Nicotine GUM 2MG FRUIT FLAVOR PO PRN (08:25)
[2021-02-21] MEDS: Vitamin THERAPEUTIC TAB PO SCH (08:26)
[2021-02-21] MEDS: Nicotine PATCH 21 MG/24 HR PATCH TRANSDERM SCH (08:26)
[2021-02-22] MEDS: Nicotine GUM 4MG FRUIT FLAVOR PO PRN (06:20)
[2021-02-22] MEDS: Nicotine PATCH 21 MG/24 HR PATCH TRANSDERM SCH (08:07)
[2021-02-22] MEDS: Vitamin THERAPEUTIC TAB PO SCH (08:08)
[2021-02-22] MEDS: Nicotine GUM 2MG FRUIT FLAVOR PO PRN (11:29)
[2021-02-23] MEDS: Nicotine GUM 4MG FRUIT FLAVOR PO PRN (07:34)
[2021-02-23] MEDS: Vitamin THERAPEUTIC TAB PO SCH (07:57)
[2021-02-23] MEDS: Nicotine PATCH 21 MG/24 HR PATCH TRANSDERM SCH (07:57)
[2021-02-23] MEDS: Nicotine GUM 2MG FRUIT FLAVOR PO PRN (20:22)
[2021-02-24] MEDS: Nicotine PATCH 21 MG/24 HR PATCH TRANSDERM SCH (08:03)
[2021-02-24] MEDS: Vitamin THERAPEUTIC TAB PO SCH (08:05)
[2021-02-24 08:47] VITALS: BP 126/74
[2021-02-24] MEDS: Nicotine GUM 2MG FRUIT FLAVOR PO PRN (11:13)
== END 2021-02-24 12:00 | disposition home or self-care (01) ==
LOC: ED 15:33 → BSU 23:29
PROVIDERS: ADMIT Psychiatry & Neurology Psychiatry; ATTEND Psychiatry & Neurology Psychiatry